=== PATIENT | female | born 1995 | race American Indian/Alaskan Native ===

== ENCOUNTER 2017-10-31 12:18 | Inpatient (IN) | payer MEDICAID ==
[2017-10-31] MEDS ORDERED: ePHEDrine SULFATE IV PRN ×2 (14:06→18:54)
[2017-10-31] MEDS ORDERED: PHENERGAN PR PRN (14:06)
[2017-10-31] MEDS ORDERED: ZOFRAN IV PRN ×2 (14:06→22:08)
[2017-10-31] MEDS ORDERED: BRETHINE IVP PRN (14:06)
[2017-10-31] MEDS ORDERED: SUBLIMAZE IV PRN (14:06)
[2017-10-31] MEDS ORDERED: MINERAL OIL PO PRN (14:06)
[2017-10-31] MEDS ORDERED: STADOL IV PRN (14:06)
[2017-10-31] MEDS ORDERED: NUBAIN IV PRN (14:06)
[2017-10-31] MEDS ORDERED: NARCAN 0.4 MG/1 ML IV PRN (14:06)
[2017-10-31] MEDS ORDERED: BRETHINE SUB-Q PRN (14:06)
[2017-10-31 14:49] LABS: Hematocrit 35.2 % (30.3-42.9); Hemoglobin 11.9 gm/dl (10.1-14.3); Mean Corpuscular HGB Conc 34 % (30-34); Mean Corpuscular Hemoglobin 27 pg (28-32); Mean Corpuscular Volume 79 fl (79-97); Platelet Count 256 K/mm3 (140-440); Red Blood Count 4.48 M/mm3 (3.65-5.03); Red Cell Distribution Width 14.8 % (13.2-15.2)
[2017-10-31] MEDS ORDERED: PITOCin/NS 30 UNIT/500ML 30 UNITS/500 ML BAG IV SCH ×2 (15:00)
[2017-10-31] MEDS ORDERED: LACTATED RINGERS 1,000 ML IV SCH (15:00)
[2017-10-31] MEDS ORDERED: PITOCin/NS 20 UNIT/1000ML DRIP 20 UNITS/1,000 ML BAG IV SCH (15:00)
[2017-10-31] MEDS ORDERED: XYLOCAINE 2% INFILTRATI ONE (15:00)
--- NOTE | 2017-10-31 17:20 | History and Physical Report ---
History of Present Illness Date of examination: 10/31/17 Date of admission: 10/31/17 15:31 Chief complaint: sent over from clinic advanced dilatation History of present illness: 22 yo at 38 weeks was seen in clinic noted kiran 4-5 cm. patient sent to triage and continued to advance in dilatation. Patient has a hx of chlamydia and trich and treated. Mild anemia on iron Past History Past Medical History: no pertinent history Past Surgical History: no surgical history PLAN MANAGER History: chlamydia, trichomonas Family/Genetic History: none Social history: no significant social history, single. denies: smoking, alcohol abuse, prescription drug abuse - Obstetrical History Expected Date of Delivery: 11/10/17 Actual Gestation: 38 Week(s) 4 Day(s) : 1 Para: 0 Hx # Term Pregnancies: 0 Number of Pregnancies: 0 Spontaneous Abortions: 0 Induced : 0 Medications and Allergies Allergies Allergy/AdvReac Type Severity Reaction Status Date / Time No Known Allergies Allergy Verified 03/16/15 21:38 Home Medications Medication Instructions Recorded Confirmed Last Taken Type No Known Home Medications [No 03/16/15 03/16/15 Unknown History Reported Home Medications] Active Meds: Active Medications Butorphanol Tartrate (Stadol) 2 mg IV Q2H PRN PRN Reason: Pain , Severe (7-10) Ephedrine Sulfate (Ephedrine Sulfate) 10 mg IV Q2M PRN PRN Reason: Hypotension Fentanyl (Sublimaze) 100 mcg IV Q2H PRN PRN Reason: Labor Pain Lactated Ringer's (Lactated Ringers) 1,000 mls @ 125 mls/hr IV DIRECT TRINO Oxytocin/Sodium Chloride (Pitocin/Ns 20 Unit/1000ml Drip) 20 units in 1,000 mls @ 125 mls/hr IV DIRECT TRINO Oxytocin/Sodium Chloride (Pitocin/Ns 30 Unit/500ml) 30 units in 500 mls @ 1 mls /hr IV TITR TRINO; Protocol Oxytocin/Sodium Chloride (Pitocin/Ns 30 Unit/500ml) 30 units in 500 mls @ 0 mls /hr IV TITR TRINO; Protocol Mineral Oil (Mineral Oil) 30 ml PO QHS PRN PRN Reason: Constipation Nalbuphine HCl (Nubain) 10 mg IV Q2H PRN PRN Reason: Pain, Moderate (4-6) Naloxone HCl (Narcan 0.4 Mg/1 Ml) 0.1 mg IV Q2MIN PRN PRN Reason: Res Rate </= 8 or 02 SAT < 92% Ondansetron HCl (Zofran) 4 mg IV Q8H PRN PRN Reason: Nausea And Vomiting Promethazine HCl (Phenergan) 25 mg SD Q6H PRN PRN Reason: N/V if unable to take po Terbutaline Sulfate (Brethine) 0.25 mg SUB-Q ONCE PRN PRN Reason: Hyperstimulation/Hypertonicity Terbutaline Sulfate (Brethine) 0.25 mg IVP ONCE PRN PRN Reason: Hyperstimulation/Hypertonicity Review of Systems All systems: negative - Vital Signs Vital signs: Vital Signs Temp Pulse Resp BP Pulse Ox 97.9 F 115 H 24 135/73 100 10/31/17 14:50 10/31/17 14:50 10/31/17 14:50 10/31/17 14:50 10/31/17 14:50 Temp Pulse Resp BP Pulse Ox 97.9 F 118 H 24 144/81 98 10/31/17 14:50 10/31/17 17:07 10/31/17 14:50 10/31/17 17:07 10/31/17 16:29 - Physical Exam Breasts: Positive: normal Cardiovascular: Regular rate, Normal S1 Lungs: Positive: Clear to auscultation, Normal air movement Abdomen: Positive: normal appearance, soft, normal bowel sounds. Negative: distention, tenderness, guarding Genitourinary (Female): Positive: normal external genitalia, normal perenium Vulva: both: normal Vagina: Positive: normal moisture Uterus: Positive: normal size Anus/Rectum: Positive: normal perianal skin Extremities: Positive: normal Deep Tendon Reflex Grade: Normal +2 - Obstetrical FHR: category 1 Uterine Contraction Monitor Mode: Palpation Cervical Dilatation: 7 Cervical Effacement Percentage: 90 station: -3 Uterine Contraction Pattern: Regular Uterine Tone Measurement Phase: Contraction Uterine Contraction Intensity: Moderate Results Result Diagrams: 10/31/17 14:00 Abnormal lab results 10/31/17 Range/Units 14:00 WBC 12.3 H (4.5-11.0) K/mm3 MCH 27 L (28-32) pg All other labs normal. Assessment and Plan A/P IUP 38+4 weeks Active labor Arom clear will add pitocin 4/4 GBS neg expect vaginal delivery
[2017-10-31] MEDS ORDERED: NARCAN 2 MG/2 ML IV PRN (18:54)
--- NOTE | 2017-10-31 18:55 | Anesthesia Consultation ---
Anesthesia Consult and Med Hx - Airway Anesthetic Teeth Evaluation: Good ROM Head & Neck: Adequate Mental/Hyoid Distance: Adequate Mallampati Class: Class II Intubation Access Assessment: Good - Pulmonary Exam CTA: Yes - Cardiac Exam Cardiac Exam: RRR - Pre-Operative Health Status ASA Pre-Surgery Classification: ASA2 Proposed Anesthetic Plan: Epidural, Spinal - Pulmonary Hx Asthma: No COPD: No Hx Pneumonia: No - Cardiovascular System Hx Hypertension: No - Central Nervous System Hx Seizures: No Hx Psychiatric Problems: No - Endocrine Hx Renal Disease: No Hx End Stage Renal Disease: No Hx Hypothyroidism: No Hx Hyperthyroidism: No - Hematic Hx Anemia: No Hx Sickle Cell Disease: No - Other Systems Hx Alcohol Use: No
[2017-10-31] MEDS ORDERED: fentaNYL-BUPIV 2 MCG/ML-0.125% 200 MCG/100 ML BAG EPIDURAL SCH (19:00)
--- NOTE | 2017-10-31 21:14 | Procedure Note ---
OB Delivery Note - Delivery Date of Delivery: 10/31/17 (5-12 oz female @ 2250) Surgeon: SAPNA HARRIS Estimated blood loss: 300cc - Vaginal Delivery presentation: vertex Delivery position: OA Delivery induction: AROM Delivery augmentation: rupture of membranes, pitocin Delivery monitor: external FHT, external uterine Route of delivery: Delivery placenta: spontaneous Delivery cord: 3 umbilical vessels Episiotomy: none Delivery laceration: none Anesthesia: epidural - A at 1 minute: 8 at 5 minutes: 9 Infant Gender: Female (Pushed for viable female in OA position over perineum. Place skin to skin. Cord blood collected. Spont. placenta. Pitocin infusing. Straight cath for 200cc clear urine. FF 4 below, U, ML. No lacerations on inspection.)
[2017-10-31] MEDS ORDERED: TYLENOL PO ONE (21:15)
[2017-10-31] MEDS ORDERED: TYLENOL PO PRN (22:08)
[2017-10-31] MEDS ORDERED: MILK OF MAGNESIA PO PRN (22:08)
[2017-10-31] MEDS ORDERED: NORCO 5/325 PO PRN (22:08)
[2017-10-31] MEDS ORDERED: TUCKS PAD TP PRN (22:08)
[2017-10-31] MEDS ORDERED: DULCOLAX PR PRN (22:08)
[2017-10-31] MEDS ORDERED: BENADRYL PO PRN (22:08)
[2017-10-31] MEDS ORDERED: LANSINOH TP PRN (22:08)
[2017-10-31] MEDS ORDERED: SODIUM CHLORIDE FLUSH SYRINGE 10 ML IV PRN (23:00)
[2017-11-01] MEDS: MOTRIN PO SCH ×4 (00:13→18:35)
[2017-11-01] MEDS ORDERED: BOOSTRIX IM ONE (06:00)
--- NOTE | 2017-11-01 08:07 | Progress Note ---
Assessment and Plan A/P PPD#1 s/p doing well no complaints vss await PP cbc Subjective - Subjective Date of service: 11/01/17 Principal diagnosis: s/p Interval history: 22 yo at 38 weeks was seen in clinic noted kiran 4-5 cm. patient sent to triage and continued to advance in dilatation. Patient has a hx of chlamydia and trich and treated. Mild anemia on iron Patient reports: appetite normal, voiding normally, pain well controlled, flatus , ambulating normally [place]: doing well Objective - Vital Signs Latest vital signs: Vital Signs Temp Pulse Resp BP BP Pulse Ox 11/01/17 04:25 98.2 F 114 H 18 117/65 11/01/17 01:25 98.1 F 122 H 18 118/62 10/31/17 23:08 133 H 97 10/31/17 23:03 129 H 117/59 97 10/31/17 22:58 119 H 97 10/31/17 22:53 118 H 97 10/31/17 22:48 112 H 117/60 97 10/31/17 22:43 121 H 98 10/31/17 22:38 120 H 98 10/31/17 22:33 118 H 112/59 97 10/31/17 22:28 119 H 97 10/31/17 22:23 122 H 98 10/31/17 22:18 121 H 118/63 98 10/31/17 21:51 170 H 97 10/31/17 21:46 134 H 98 10/31/17 21:41 128 H 98 10/31/17 21:36 157 H 94 10/31/17 21:31 128 H 96 10/31/17 21:29 79 L 10/31/17 21:26 130 H 99 10/31/17 21:21 134 H 99 10/31/17 21:16 127 H 98 10/31/17 20:56 147 H 95 10/31/17 20:51 125 H 99 10/31/17 20:46 125 H 100 10/31/17 20:41 116 H 100 10/31/17 20:36 118 H 100 10/31/17 20:31 123 H 100 10/31/17 20:26 115 H 100 10/31/17 20:21 115 H 129/60 100 10/31/17 20:19 117 H 136/60 10/31/17 20:17 114 H 132/59 05 20:16 111 H 100 05 20:15 98.8 F 106 H 20 135/69 05 20:13 118 H 133/64 05 20:11 116 H 149/69 100 10/31/17 20:09 118 H 124/74 10/31/17 20:07 117 H 131/69 10/31/17 20:06 118 H 100 10/31/17 20:05 109 H 126/76 10/31/17 20:03 123 H 140/79 10/31/17 20:01 112 H 134/72 100 10/31/17 20:00 114 H 135/63 10/31/17 19:57 114 H 131/69 10/31/17 19:56 115 H 100 05 19:55 132/81 10/31/17 19:53 109 H 133/78 10/31/17 19:51 117 H 132/78 100 10/31/17 19:49 113 H 130/69 10/31/17 19:47 108 H 143/61 10/31/17 19:46 73 77 L 10/31/17 19:45 113 H 128/59 10/31/17 19:44 115 H 128/55 10/31/17 19:41 111 H 100 10/31/17 19:37 108 H 141/66 10/31/17 19:36 111 H 100 10/31/17 19:35 108 H 145/63 10/31/17 19:33 115 H 136/64 10/31/17 19:31 116 H 127/61 100 10/31/17 19:29 115 H 133/60 10/31/17 19:27 115 H 150/63 10/31/17 19:26 115 H 94 05 19:25 115 H 223/146 10/31/17 19:21 119 H 100 05 19:20 98.4 F 111 H 128/55 100 10/31/17 19:17 121 H 137/61 10/31/17 19:16 111 H 99 05 19:15 120 H 141/67 10/31/17 19:11 125 H 99 05 19:06 129 H 96 10/31/17 19:01 121 H 98 10/31/17 18:56 117 H 100 10/31/17 18:51 140 H 98 10/31/17 18:46 117 H 99 10/31/17 18:41 128 H 99 10/31/17 18:37 107 H 137/83 10/31/17 18:36 107 H 98 10/31/17 18:31 142 H 99 10/31/17 18:26 128 H 98 10/31/17 18:21 118 H 98 10/31/17 18:16 138 H 97 10/31/17 18:11 121 H 98 10/31/17 18:07 125 H 137/58 10/31/17 17:41 114 H 97 10/31/17 17:36 123 H 97 10/31/17 17:31 120 H 97 10/31/17 17:26 127 H 98 10/31/17 17:24 98.0 F 122 H 18 144/81 10/31/17 17:07 118 H 144/81 10/31/17 16:29 119 H 98 10/31/17 16:24 115 H 133/71 98 10/31/17 16:19 113 H 97 10/31/17 16:14 126 H 100 10/31/17 16:09 120 H 100 10/31/17 16:04 113 H 92 10/31/17 15:59 118 H 97 10/31/17 15:54 115 H 99 10/31/17 15:49 111 H 99 10/31/17 15:44 124 H 99 10/31/17 15:39 108 H 99 10/31/17 15:34 109 H 98 10/31/17 15:32 110 H 138/81 10/31/17 15:29 110 H 98 10/31/17 15:06 115 H 98 10/31/17 15:01 109 H 99 10/31/17 14:56 117 H 135/73 100 10/31/17 14:50 97.9 F 115 H 24 135/73 100 Intake and Output 10/31/17 11/01/17 11/01/17 23:59 07:59 15:59 Output Total 300 800 Balance -300 -800 Output: Urine 300 800 Indwelling Catheter 300 Void 800 Other: Total, Output Amount 300 800 # Voids Indwelling Catheter 1 Estimated Blood Loss 300 - Exam Breasts: Present: normal Cardiovascular: Present: Regular rate, Normal S1 Lungs: Present: Clear to auscultation, Normal air movement Abdomen: Present: normal appearance, soft. Absent: distention, tenderness, guarding Vulva: both: normal Uterus: Present: normal, firm, fundal height below umbilicus. Absent: bogginess , tenderness Extremities: Present: normal Deep Tendon Reflex Grade: Normal +2 - Labs Labs: Abnormal lab results 10/31/17 Range/Units 14:00 WBC 12.3 H (4.5-11.0) K/mm3 MCH 27 L (28-32) pg
[2017-11-01] MEDS ORDERED: PRENATAL VITAMIN PO SCH (10:00)
[2017-11-01 10:44] LABS: Hematocrit 32.7 % (30.3-42.9); Hemoglobin 10.4 gm/dl (10.1-14.3)
--- NOTE | 2017-11-01 17:49 | Discharge Summary ---
Providers - Providers Date of Admission: 10/31/17 15:31 Date of discharge: 11/02/17 Attending physician: MADELINE RANKIN MD Primary care physician: KETTLEMAN Hospitalization Reason for admission: active labor Delivery: Episiotomy: none Laceration: none Other procedures: none complications: none Discharge diagnosis: IUP at term delivered baby: female Condition at discharge: Good Disposition: DC-01 TO HOME OR SELFCARE Plan - Discharge Medications Prescriptions: Ibuprofen [Motrin] 600 mg PO Q8H PRN #30 tablet PRN Reason: Pain oxyCODONE /ACETAMINOPHEN [Percocet 5/325] 1 tab PO Q6HR PRN #30 tablet PRN Reason: Pain - Provider Discharge Summary Activity: routine, no sex for 6 weeks, no strenuous exercise Diet: routine Instructions: routine Additional instructions: [] Smoking cessation referral if applicable(refer to patient education folder for contact #) [] Refer to [facility] Booklet Call your doctor immediately for: * Fever > 100.5 * Heavy vaginal bleeding ( >1 pad per hour) * Severe persistent headache * Shortness of breath * Reddened, hot, painful area to leg or breast * Drainage or odor from incision. * Keep incision clean and dry at all times and follow doctor's instructions regarding bathing/showering - Follow up plan Follow up: MARIBEL KRAMER MD [Primary Care Provider] - 7 Days MADELINE RANKIN MD [Staff Physician] - 7 Days
[2017-11-02] MEDS: MOTRIN PO SCH ×2 (00:07→06:22)
[2017-11-02 12:39] VITALS: BP 119/79
== END 2017-11-02 13:30 | disposition home or self-care (01) | DRG 774 ==
LOC: TRG 12:18 → LD 15:31 → OB 23:48
PROVIDERS: ADMIT Obstetrics & Gynecology; ATTEND Obstetrics & Gynecology
PROC: 10E0XZZ Delivery of Products of Conception, External Approach (ICD-10-PCS; principal; 2017-10-31)
PROC: 3E0R3BZ Introduction of Anesthetic Agent into Spinal Canal, Percutaneous Approach (ICD-10-PCS; 2017-10-31)
PROC: 00HU33Z Insertion of Infusion Device into Spinal Canal, Percutaneous Approach (ICD-10-PCS; 2017-10-31)
PROC: 10907ZC Drainage of Amniotic Fluid, Therapeutic from Products of Conception, Via Natural or Artificial Opening (ICD-10-PCS; 2017-10-31)
DX: O99.02 Anemia complicating childbirth (principal); O98.32 Other infections with a predominantly sexual mode of transmission complicating childbirth; Z3A.38 38 weeks gestation of pregnancy; Z37.0 Single live birth; D64.9 Anemia, unspecified; A59.9 Trichomoniasis, unspecified; O98.82 Other maternal infectious and parasitic diseases complicating childbirth; A56.8 Sexually transmitted chlamydial infection of other sites
CPT/HCPCS: 36415; 85014; 85018; 85027; 86592; 86850; 86900; 86901; 90471; 90715; J2590; J3010; J7120

== ENCOUNTER 2018-02-16 12:50 | Emergency (ER) | payer MEDICAID ==
[2018-02-16 13:06] VITALS: BP 128/76
[2018-02-16 14:45] LABS: Bacteria,Urine 2+ /HPF (Negative); Bilirubin,Urine NEG (Negative); Blood,Urine NEG (Negative); Color,Urine Amber (Yellow); Granular Casts,Urine 2 /LPF; Mucus,Urine 3+ /HPF
[2018-02-16] MEDS ORDERED: NORCO 7.5/325 PO ONE (15:03)
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
[2018-02-16 15:28] LABS: HCG Qualitative,Urine Negative (Negative)
--- NOTE | 2018-02-16 15:44 | Cat Scan Report ---
FINAL REPORT PROCEDURE: CT HEAD/BRAIN WO CON TECHNIQUE: Computerized tomography of the head was performed without contrast material. HISTORY: headache/neck pain COMPARISON: No prior studies are available for comparison. FINDINGS: Brain: Brain density appears normal. No evidence of intracranial hemorrhage. No parenchymal hemorrhage, mass lesions or mass effect are seen. No abnormal extraxial fluid collects or masses are seen. Ventricles: Ventricles are normal size and are midline. Bone Windows: No evidence of skull fracture. Paranasal sinuses: Visualized portions are clear. Mastoid air cells: Clear IMPRESSION: Negative examination
--- NOTE | 2018-02-16 16:05 | Cat Scan Report ---
FINAL REPORT PROCEDURE: CT CERVICAL SPINE WO CON TECHNIQUE: Computerized tomography of the cervical spine was performed from the skull base to T1 without contrast material. HISTORY: headache/neck pain COMPARISON: No prior studies are available for comparison. FINDINGS: No fracture or subluxation is visualized. The prevertebral soft tissues appear normal. Disc spaces are well maintained. No focal disc herniation or spinal stenosis is visualized. Posterior elements are intact. Bone density appears normal. IMPRESSION: Negative exam..
== END 2018-02-16 16:30 | disposition home or self-care (01) ==
LOC: ED 12:50
DX: S16.1XXA Strain of muscle, fascia and tendon at neck level, initial encounter (principal); S00.93XA Contusion of unspecified part of head, initial encounter; Z79.899 Other long term (current) drug therapy; Y04.8XXA Assault by other bodily force, initial encounter; Y93.89 Activity, other specified; Y99.8 Other external cause status; Y92.89 Other specified places as the place of occurrence of the external cause
CPT/HCPCS: 70450; 72125; 81001; 81025

== ENCOUNTER 2019-06-15 10:20 | Emergency (ER) | payer SELFPAY ==
[2019-06-15 15:31] VITALS: BP 111/81
== END 2019-06-15 16:58 | disposition home or self-care (01) ==
LOC: ED 10:20
DX: N73.9 Female pelvic inflammatory disease, unspecified (principal); A59.01 Trichomonal vulvovaginitis; N39.0 Urinary tract infection, site not specified; R11.2 Nausea with vomiting, unspecified; Z79.899 Other long term (current) drug therapy
CPT/HCPCS: 36415; 74177; 80053; 81001; 84703; 85025; 87210; 87591; 96361; 96365; 96375; 99284; J0696; J2270; J2405; J7030